=== PATIENT | female | born 1970 | race Caucasian/White ===

== ENCOUNTER 2016-06-13 10:55 | Day surgery (SDC) | payer BC ==
[~2016-06-13 10:55] MED LIST: Buffered Lidocaine 1% SYR 3ML* 3 ML/SYR SYRINGE INTRADERM ONE
[2016-06-13] MEDS ORDERED: ceFAZolin 2 GM PREMIX (*) 2 GM/50 ML BAG IVPB ONE (11:07)
[2016-06-13 11:40] LABS: UR Preg Internal Control QC Line Present
[2016-06-13] MEDS ORDERED: Bupivacaine 0.25% EPI 200,000* 30 ML SDV ONE (12:11)
[2016-06-13] MEDS ORDERED: Midazolam* 1 MG/ML 5 ML VIAL (5 MG) ONE (12:22)
[2016-06-13] MEDS ORDERED: Dexamethasone IV* 4 MG/ML 1 ML (4 MG) ONE (12:38)
[2016-06-13] MEDS ORDERED: Ondansetron INJ* 2 MG/ML VIAL ONE ×2 (12:38→13:50)
[2016-06-13] MEDS ORDERED: Bupivacaine 0.25% SDV* 30 ML ONE (12:51)
[2016-06-13] MEDS ORDERED: Ketorolac INJ* 30 MG/ML 1 ML VIAL ONE (13:07)
[2016-06-13] MEDS ORDERED: HYDROcodone/ACETAMIN 5-325 MG* 1 TAB PO PRN (13:17)
[2016-06-13] MEDS ORDERED: DiMENhydriNATE IV* 50 MG/ML VIAL IV PUSH PRN (13:17)
[2016-06-13] MEDS ORDERED: oxyCODONE TAB* 5 MG TAB PO PRN (13:17)
[2016-06-13] MEDS ORDERED: HYDROmorphone INJ* 1 MG/ML CARPUJECT SYRINGE IV PRN (13:17)
[2016-06-13] MEDS ORDERED: Ondansetron INJ* 2 MG/ML VIAL IV PRN (13:17)
[2016-06-13] MEDS ORDERED: fentaNYL* 50 MCG/ML 2 ML VIAL (100 MCG VIAL) ONE ×2 (13:21→16:08)
[2016-06-13] MEDS: fentaNYL* 50 MCG/ML 2 ML VIAL (100 MCG VIAL) IV PRN ×4 (13:23→13:37)
[2016-06-13] MEDS ORDERED: DiMENhydriNATE IV* 50 MG/ML VIAL ONE (14:24)
[2016-06-13 14:44] VITALS: BP 132/90
--- NOTE | 2016-06-13 23:31 | OP ---
DATE OF OPERATION: 06/13/16 - [facility] DATE OF : 66 SURGEON: Casie Puckett MD ANESTHESIOLOGIST: Ze Torres MD ANESTHESIA: General. PRE-OP DIAGNOSIS: Symptomatic hardware. POST-OP DIAGNOSIS: Symptomatic hardware. OPERATIVE PROCEDURE: Removal of symptomatic hardware from the left knee. INDICATIONS: Ester Bahena is a 46-year-old female who underwent tibial tubercle osteotomy by Dr. Maximo Nicholas over a year ago. She has healed her surgery well, but she is having symptoms that are with respects to the hardware. She has a lot of pain, especially about the screws. She would like to have these removed. Risks and benefits of surgery were discussed at length included, but not limited to bleeding, infection, damage to nerves, vessels, surrounding structures, wound nonhealing, persistent pain, need for further surgery, risk of anesthesia, risk of DVT as well as fracture. She has elected to proceed with surgery. COMPLICATION: None. ESTIMATED BLOOD LOSS: Minimal. DESCRIPTION OF PROCEDURE: The patient was greeted in the preoperative area by the attending surgeon. Correct extremity was marked and consent was confirmed. The patient was brought back to the operating suite, where she was placed in the supine position on the operating table. She then underwent general anesthesia and LMA intubation which she tolerated without difficulty. A nonsterile tourniquet was placed high on the proximal thigh. The left leg was then prepped and draped in the usual sterile fashion beginning with chlorhexidine, soap, scrub, and alcohol wipe and final prep with ChloraPrep. After appropriate surgical pause indicating side, site, procedure, administration of antibiotics, the previous incision was incised again. The soft tissues were carefully dissected and the screws were palpable. A Bovie was used to remove the scar tissue above the screws, they were removed in their entirety. The holes were curetted. The wound was copiously irrigated with sterile saline. The wounds were then closed in layers of 2-0 Vicryl and 3-0 nylon. Sterile dressings were applied. The anterior wound was injected with 30 cc of 0.25% Marcaine. She tolerated the procedure well and she was awoken from anesthesia and transferred to the PACU in stable condition. POSTOPERATIVE PLAN: She will be weightbearing as tolerated. She will be using crutches. She can gently work on range of motion. I will see the patient back in 10 to 14 days. She will be discharged on pain medication and antibiotics. DVT prophylaxis considered but deferred due to no previous, personal, or family history. She was told that she should quit smoking. [id number]/[facility] #: [id number] MTDD
== END 2016-06-13 15:00 | disposition home or self-care (01) ==
LOC: OR 10:55
PROVIDERS: ATTEND Orthopaedic Surgery
DX: T84.84XA Pain due to internal orthopedic prosthetic devices, implants and grafts, initial encounter (principal); M25.562 Pain in left knee; Y83.1 Surgical operation with implant of artificial internal device as the cause of abnormal reaction of the patient, or of later complication, without mention of misadventure at the time of the procedure; F17.210 Nicotine dependence, cigarettes, uncomplicated
CPT/HCPCS: 81025; 88300; J0690; J1100; J1240; J1885; J2250; J2405; J3010